=== PATIENT | female | born 1960 | race Caucasian/White ===

== ENCOUNTER 2017-08-17 09:12 | Inpatient (IN) | payer SELFPAY ==
[~2017-08-17] VITALS: Ht 165.1 cm; Wt 104.0 kg
[2017-08-17] VITALS (11 sets, daily range): BP systolic 147–184; BP diastolic 80–104; PULSE 110–120; RESP 20–26; TEMP 97–98.8; O2SAT 84–97
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
[2017-08-17] MEDS ORDERED: SODIUM CHLORIDE 0.9% FLUSH 10 ML FLUSH IVF PRN (09:30)
[2017-08-17] MEDS ORDERED: methylPREDNISolone SOD SUCC 125 MG/2 ML VIAL IV PUSH ONE (09:30)
[2017-08-17 09:43] LABS: AUTOMATED NEUTROPHIL # 8.1 TH/MM3 (1.8-7.7); BASOPHIL # 0.1 TH/MM3 (0-0.2); BASOPHIL % 0.5 % (0.0-2.0); EOSINOPHIL # 0.2 TH/MM3 (0-0.4); EOSINOPHIL % 1.7 % (0.0-4.0); HEMATOCRIT 43.5 % (35.0-46.0); HEMO FLAGS DIFF FINAL; LYMPH % 14.7 % (9.0-44.0); LYMPHOCYTE # 1.6 TH/MM3 (1.0-4.8); MEAN CELL VOLUME 83.8 FL (80.0-100.0); MEAN CORPUSCULAR HEMOGLOBIN 28.1 PG (27.0-34.0); MEAN CORPUSCULAR HGB CONC 33.5 % (32.0-36.0); MONO % 7.5 % (0.0-8.0); NEUT % 75.6 % (16.0-70.0); PLATELET COUNT 324 TH/MM3 (150-450); RED BLOOD COUNT 5.19 MIL/MM3 (4.00-5.30); RED CELL DISTRIBUTION WIDTH 13.6 % (11.6-17.2); WHITE BLOOD COUNT 10.8 TH/MM3 (4.0-11.0)
[2017-08-17] MEDS: RESP: ALBUTEROL 2.5 MG/IPRATROPIUM 0.5 MG NEB (SCH) INH (09:43)
[2017-08-17 09:55] LABS: BLOOD GAS BASE EXCESS 6.8 mmol/L (-2-2); BLOOD GAS CARBOXYHEMOGLOBIN 6.4 % (0-4); BLOOD GAS HCO3 32 mmol/L (22-26); BLOOD GAS METHEMOGLOBIN 1.1 % (0-2); BLOOD GAS OXYGEN CONTENT 16.2 Vol % (12.0-20.0); BLOOD GAS PCO2 53 mmHG (38-42); BLOOD GAS PO2 50 mmHG (61-120); BLOOD GAS TOTAL HGB 14.4 G/DL (12.0-16.0); CRITICAL VALUE YES; TEMP CORR TO 98.6
[2017-08-17 09:56] LABS: BICARBONATE 31.4 MEQ/L (21.0-32.0)
[2017-08-17 09:56] LABS: BLOOD GAS O2 HGB SATURATION 80 % (90-100); DRAW SITE RT RADIAL; NUMBER OF ARTERIAL PUNCTURES 1; OXYGEN DEVICE ROOM AIR; STAT YES; ULNAR PULSE PRESENT
--- NOTE | 2017-08-17 09:57 | RADRPT ---
EXAM DATE/TIME: 08/17/2017 09:35 [facility] COMPARISON: No previous studies available for comparison. INDICATIONS : Short of breath. MEDICAL HISTORY : Chronic obstructive pulmonary disease. SURGICAL HISTORY : None. ENCOUNTER: Initial ACUITY: 1 week PAIN SCORE: 0/10 LOCATION: Bilateral chest FINDINGS: A single view of the chest demonstrates the lungs to be symmetrically aerated without evidence of mas s, infiltrate or effusion. The cardiomediastinal contours are unremarkable. Osseous structures are intact. CONCLUSION: No acute disease. Jas Paiz MD FACR on August 17, 2017 at 9:44 Board Certified Radiologist. This report was verified electronically.
[2017-08-17 10:00] LABS: GLOMERULAR FILTRATION RATE 98 ML/MIN (>89)
[2017-08-17 10:02] LABS: ANION GAP 8 MEQ/L (5-15); CHLORIDE 99 MEQ/L (98-107); POTASSIUM 3.8 MEQ/L (3.5-5.1); SODIUM (NA) 138 MEQ/L (136-145)
[2017-08-17 10:07] LABS: BLOOD UREA NITROGEN 8 MG/DL (7-18)
[2017-08-17] MEDS ORDERED: RESP: ALBUTEROL 2.5 MG/3 ML NEB (SCH) NEB ONE (10:45)
[2017-08-17] MEDS ORDERED: SODIUM CHLORIDE 0.9% FLUSH 10 ML FLUSH IV FLUSH PRN (11:00)
[2017-08-17] MEDS: RESP: ALBUTEROL 2.5 MG/IPRATROPIUM 0.5 MG NEB (SCH) NEB ×4 (11:26→23:25)
--- NOTE | 2017-08-17 11:52 | EKG ---
Date Performed: 08/17/2017 Time Performed: 09:29:32 PTAGE: 56 years EKG: SINUS TACHYCARDIA INFERIOR MYOCARDIAL INFARCTION ABNORMAL ECG NO PREVIOUS TRACING DOCTOR: Dewyane Li Interpretating Date/Time 08/17/2017 11:51:19
[2017-08-17] MEDS ORDERED: IOHEXOL 350 MG/ML 10 ML VIAL (for RAD DIAG) IVCONTRAST ONE (13:52)
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
[2017-08-17] MEDS ORDERED: GLUCAGON 1 MG/ML VIAL OTHER PRN (14:15)
[2017-08-17] MEDS ORDERED: DOCUSATE SODIUM 100 MG CAP PO PRN (14:15)
[2017-08-17] MEDS ORDERED: ONDANSETRON HCL 4 MG/2 ML VIAL IV PRN (14:15)
[2017-08-17] MEDS ORDERED: MAGNESIUM HYDROXIDE SUSP 30 ML CUP PO PRN (14:15)
[2017-08-17] MEDS ORDERED: CALCIUM CARBONATE 500 MG CHEWABLE TAB CHEW PRN (14:15)
[2017-08-17] MEDS ORDERED: ACETAMINOPHEN 325 MG TAB PO PRN (14:15)
[2017-08-17] MEDS ORDERED: DEXTROSE 50% IN WATER 50 ML VIAL(D50) IV PRN (14:15)
[2017-08-17] MEDS: LISINOPRIL 5 MG TAB PO SCH (16:13)
[2017-08-17 17:10] LABS: HEMOGLOBIN A1a 1.4 %; HEMOGLOBIN A1b 2.2 %; HEMOGLOBIN Ao 82.2 %; HEMOGLOBIN LA1C 2.7 %; HEMOGLOBIN P3 4.1 %
[2017-08-17] MEDS: INSULIN ASPART SUPPLEMENTAL SCALE SQ SCH ×2 (18:27→20:55)
[2017-08-17] MEDS: methylPREDNISolone SOD SUCC 125 MG/2 ML VIAL IV PUSH SCH (18:28)
[2017-08-17] MEDS: SODIUM CHLORIDE 0.9% FLUSH 10 ML FLUSH IV FLUSH SCH (20:54)
[2017-08-18] VITALS (10 sets, daily range): BP systolic 123–134; BP diastolic 64–84; PULSE 103–117; RESP 14–20; TEMP 96.7–97.6; O2SAT 90–92
[2017-08-18] MEDS: methylPREDNISolone SOD SUCC 125 MG/2 ML VIAL IV PUSH SCH ×3 (02:00→17:56)
[2017-08-18] MEDS: RESP: ALBUTEROL 2.5 MG/IPRATROPIUM 0.5 MG NEB (SCH) NEB ×5 (03:20→20:14)
[2017-08-18] MEDS: SODIUM CHLORIDE 0.9% FLUSH 10 ML FLUSH IV FLUSH SCH ×2 (08:23→20:55)
[2017-08-18] MEDS: LISINOPRIL 5 MG TAB PO SCH (08:24)
[2017-08-18] MEDS: INSULIN ASPART SUPPLEMENTAL SCALE SQ SCH ×4 (09:48→20:55)
[2017-08-18] MEDS ORDERED: INFLUENZA VIRUS VACCINE (QUADRIVALENT) 0.5 ML SYR IM ONE (10:00)
[2017-08-18] MEDS ORDERED: RESP: ALBUTEROL 2.5 MG/3 ML NEB (PRN) NEB (11:15)
[2017-08-18] MEDS ORDERED: SODIUM CHLOR 0.9% 1000 ML INJ 1,000 ML IV ONE (11:15)
--- NOTE | 2017-08-18 11:45 | HHI.PR ---
Subjective Remarks Patient herself says she feels just slightly better since yesterday, but still is complaining of significant shortness of breath just ambulating back and forth from the bathroom. Again she denies any chest pain. , Says she does not feel rested. Nursing reports that she is very drowsy appearing. Tolerating by mouth intake well, afebrile Objective Vital Signs Date Time Temp Pulse Resp B/P (MAP) Pulse Ox O2 Delivery O2 Flow Rate FiO2 08/18/17 08:24 97.6 117 14 130/84 (99) 90 08/18/17 07:39 90 Nasal Cannula 3.00 08/18/17 04:00 97.3 113 20 134/79 (97) 90 08/18/17 00:00 97.1 111 20 130/81 (97) 92 08/17/17 20:06 91 Nasal Cannula 3.00 08/17/17 20:00 97.0 115 20 184/96 (125) 90 08/17/17 20:00 110 08/17/17 19:00 91 Nasal Cannula 3.00 08/17/17 18:51 92 Nasal Cannula 3.00 08/17/17 18:44 113 08/17/17 16:00 97.9 113 22 167/104 (125) 92 08/17/17 13:11 08/17/17 12:42 112 22 158/81 (106) 90 Nasal Cannula 3.00 08/17/17 11:42 120 22 147/80 (102) 90 Nasal Cannula 2.00 Result Diagram: 08/17/1735 08/17/1735 Imaging Last Impressions Chest X-Ray 08/17/17922 Signed Impressions: Service Date/Time: Thursday, August 17, 2017 09:35 - CONCLUSION: No acute disease. Jas Paiz MD FACR Objective Remarks Sleeping with her mouth open upon entrance Easily awoken Minimally labored breathing, diffuse mild to moderate expiratory wheezing Appears diaphoretic A/P Assessment and Plan 56-year-old female who presented to hospital because of progressive shortness of breath, dyspnea. Patient has not use any medications, oxygen, CPAP in over a year because of no primary medical doctor in this area. Acute on chronic hypoxic respiratory failure secondary to chronic obstructive pulmonary disease with acute exacerbation and medication noncompliance. Given just partial improvement since yesterday and persistent tachycardia with unknown level of what her baseline oxygen is supposed to be, we'll order CT pulmonary angiogram. Continue O2 supplementation maintain O2 sats greater than 92% We'll continue high-dose Solu-Medrol 125 for now Continue duo nebs. I do not feel that she has any acute coronary syndrome since she denies any and all chest pain or nausea and her initial troponin is negative. Tachycardia - new problem since this is persistent was originally thought to be due to neb tx's - I independently reviewed the EKG and it shows sinus tachycardia with no significant ST changes, we'll order repeat EKG today, we'll workup for pulmonary embolism as above . Hypertension, blood pressure elevated this time Could be secondary to acute distress, Solu-Medrol lisinopril 5 mg daily Vasotec/clonidine as needed History of diabetes, hyperglycemia Anticipate glucose getting worse secondary to steroid use Check hemoglobin A1c Accu-Cheks with sliding scale insulin DVT prevention will start Lovenox Discharge disposition Consult case management for discharge planning, patient will require patient care assistance, blue card, follow up with Dr. Smith/[facility] upon discharge Waldo Quinones MD Aug 18, 2017 11:45
[2017-08-18] MEDS ORDERED: RESP: ALBUTEROL 2.5 MG/IPRATROPIUM 0.5 MG NEB (SCH) NEB (12:00)
[2017-08-18] MEDS: ENOXAPARIN SODIUM 40 MG/0.4 ML SYRINGE SQ SCH (13:21)
[2017-08-18] MEDS: BUDESONIDE-FORMOTEROL 160/4.5 MCG INHALER INH SCH ×2 (13:21→20:55)
[2017-08-18] MEDS ORDERED: IOHEXOL 350 MG/ML 10 ML VIAL (for RAD DIAG) IVCONTRAST ONE (13:52)
--- NOTE | 2017-08-18 14:20 | RADRPT ---
EXAM DATE/TIME: 08/18/2017 13:45 [facility] COMPARISON: No previous studies available for comparison. INDICATIONS : Short of breath. Evaluate for embolism. IV CONTRAST: 65 cc Omnipaque 350 (iohexol) IV RADIATION DOSE: 21.62 CTDIvol (mGy) MEDICAL HISTORY : Hypertension. Chronic obstructive pulmonary disease. Asthma. Diabetes. SURGICAL HISTORY : Fusion, lumbar. ENCOUNTER: Initial ACUITY: 4 - 6 days PAIN SCALE: 0/10 LOCATION: chest TECHNIQUE: Volumetric scanning of the chest was performed using a pulmonary embolism protocol MIP images were re constructed. Using automated exposure control and adjustment of the mA and/or kV according to patien t size, radiation dose was kept as low as reasonably achievable to obtain optimal diagnostic quality images. DICOM format image data is available electronically for review and comparison. Follow-up recommendations for detected pulmonary nodules are based at a minimum on nodule size and pa tient risk factors according to Fleischner Society Guidelines. FINDINGS: PULMONARY ARTERIES: No filling defects are seen in the pulmonary arteries through the segmental level. LUNGS: There are faint scattered "tree in bud" densities in both hemithoraces peripherally characteristic of an atypical infection such as JAGDISH. Nonspecific perifissural nodule is seen a basilar segment of the right upper lobe which is probably postinflammatory. PLEURAE: There is no pleural thickening or pleural effusion. MEDIASTINUM: There is good visualization of the great vessels of the middle mediastinum. No evidence of mediastin al or hilar adenopathy/mass. MUSCULOSKELETAL: Within normal limits for patient age. MISCELLANEOUS: The visualized upper abdominal organs demonstrate no acute abnormality. CONCLUSION: 1. Faint, scattered "tree in bud" densities in both hemithoraces characteristic of an atypical infilt rate such as JAGDISH. 2. Isolated perifissural nodule in a basilar segment of the right upper lobe is nonspecific but likel y postinflammatory. 3. No confluent infiltrate or pulmonary embolus Harshal Oro MD on August 18, 2017 at 13:57 Board Certified Radiologist. This report was verified electronically.
[2017-08-18] MEDS ORDERED: DILTIAZEM HCL 30 MG TAB PO SCH (16:00)
[2017-08-18] MEDS ORDERED: AZITHROMYCIN 250 MG TAB PO ONE (16:30)
[2017-08-18] MEDS ORDERED: DILTIAZEM HCL 25 MG/5 ML VIAL IV ONE (18:00)
[2017-08-19] VITALS (9 sets, daily range): BP systolic 90–136; BP diastolic 57–77; PULSE 75–115; RESP 15–22; TEMP 96.5–98.1; O2SAT 92–95
[2017-08-19] MEDS: RESP: ALBUTEROL 2.5 MG/IPRATROPIUM 0.5 MG NEB (SCH) NEB ×7 (00:17→23:33)
[2017-08-19] MEDS: methylPREDNISolone SOD SUCC 125 MG/2 ML VIAL IV PUSH SCH ×3 (02:07→17:28)
[2017-08-19] MEDS: INSULIN ASPART SUPPLEMENTAL SCALE SQ SCH ×4 (09:23→21:26)
[2017-08-19] MEDS: SODIUM CHLORIDE 0.9% FLUSH 10 ML FLUSH IV FLUSH SCH ×2 (09:23→21:25)
[2017-08-19] MEDS: DILTIAZEM HCL 30 MG TAB PO SCH ×2 (09:24→13:47)
[2017-08-19] MEDS: BUDESONIDE-FORMOTEROL 160/4.5 MCG INHALER INH SCH (09:24)
[2017-08-19] MEDS: AZITHROMYCIN 250 MG TAB PO SCH (09:24)
[2017-08-19] MEDS: LISINOPRIL 5 MG TAB PO SCH (09:24)
--- NOTE | 2017-08-19 12:40 | HHI.PR ---
Subjective Remarks Patient herself says that she still feels short of breath, slightly better since yesterday. Reports mainly having dyspnea on exertion, even going to the bathroom. Patient is still having persistent tachycardia which responded to diltiazem. Case discussed with PT and nursing, reported that the patient did have 92% sats initially but then upon evaluation session was noted to be saturating at 87% while resting in no severe acute distress, then desaturated further to 81% upon exertion - the entire time being on 3 L. Patient herself says that at baseline when she used to have oxygen she thinks it was at least 2 L. Patient does admit to being anxious, says she is to be on Celexa, would like to have that restarted Objective Vital Signs Date Time Temp Pulse Resp B/P (MAP) Pulse Ox O2 Delivery O2 Flow Rate FiO2 08/19/17 08:50 97.7 98 15 112/73 (86) 92 08/19/17 07:16 93 Nasal Cannula 3.00 08/19/17 04:00 96.5 97 18 121/77 (92) 92 08/19/17 00:00 97.4 100 18 121/74 (90) 93 08/18/17 20:15 92 Nasal Cannula 3.00 08/18/17 20:00 103 08/18/17 20:00 96.7 112 18 126/79 (95) 92 08/18/17 20:00 92 Nasal Cannula 3.00 08/18/17 19:49 97.0 110 20 131/77 (95) 92 08/18/17 16:19 113 08/18/17 15:40 90 Nasal Cannula 2.00 08/18/17 15:20 91 Nasal Cannula 3.00 08/18/17 15:06 96.9 117 16 123/64 (83) 90 I/O 08/18/17 08/18/17 08/18/17 08/19/17 08/19/17 08/19/17 07:00 15:00 23:00 07:00 15:00 23:00 Intake Total 1100 ml 240 ml Balance 1100 ml 240 ml Intake Oral 1100 ml 240 ml # Voids 3 3 2 # Bowel Movements 1 Result Diagram: 08/17/1735 08/17/[address] Angiography 08/18/17 0000 Signed Impressions: Service Date/Time: Friday, August 18, 2017 13:45 - CONCLUSION: 1. Faint, scattered tree in bud densities in both hemithoraces characteristic of an atypical infiltrate such as JAGDISH. 2. Isolated perifissural nodule in a basilar segment of the right upper lobe is nonspecific but likely postinflammatory. 3. No confluent infiltrate or pulmonary embolus Harshal Oro MD Chest X-Ray 08/17/17 0923 Signed Impressions: Service Date/Time: Thursday, August 17, 2017 09:35 - CONCLUSION: No acute disease. Jas Paiz MD FACR Objective Remarks Awake, lying in bed No acute distress, on nasal cannula Coarse bilateral breath sounds with mild to moderate expiratory wheezing, breath sounds are deeper today Heart rate is regular rate and rhythm, no murmurs, no lower extremity edema A/P Assessment and Plan 56-year-old female who presented to hospital because of progressive shortness of breath, dyspnea. Patient has not use any medications, oxygen, CPAP in over a year because of no primary medical doctor in this area. Acute on chronic hypoxic respiratory failure secondary to chronic obstructive pulmonary disease with acute exacerbation and medication noncompliance. - CT angiogram is negative for pulmonary embolism, report itself reads findings characteristic of atypical JAGDISH, however my independent review of the film shows no abnormal infiltrates or effusions. Given her persistent desaturations and fluctuations on the same oxygen level of 3 L while having already undergone a full 48 hours of high-dose Solu-Medrol at 125 mg every 8 hours, will consult pulmonology. COPD - Continue to DuoNeb nebs and steroids Tachycardia - initially the problem was thought to be due to beta agonist nebulizer treatments and/or increased cardiac demand due to patient's sheer morbidly obese habitus, responded to Cardizem by feel that this is now actually a compensation for her hypoxia, will DC continue Cardizem for now until pulmonology evaluation.. Hypertension, blood pressure elevated this time Could be secondary to acute distress, Solu-Medrol lisinopril 5 mg daily Vasotec/clonidine as needed History of diabetes, hyperglycemia Anticipate glucose getting worse secondary to steroid use Check hemoglobin A1c Accu-Cheks with sliding scale insulin DVT prevention Lovenox Discharge disposition Consult case management for discharge planning, patient will require patient care assistance, blue card, follow up with Dr. Smith[facility] upon discharge Waldo Quinones MD Aug 19, 2017 12:40
[2017-08-19] MEDS: ENOXAPARIN SODIUM 40 MG/0.4 ML SYRINGE SQ SCH (13:48)
[2017-08-19] MEDS: cefTRIAXone INJ 1,000 MG in SODIUM CHLORIDE 0.9% INJ 100 ML IV SCH (17:28)
[2017-08-19] MEDS: PANTOPRAZOLE SOD 20 MG DELAYED RELEASE TAB PO SCH (17:28)
[2017-08-19] MEDS: CITALOPRAM HYDROBROMIDE 20 MG TAB PO SCH (17:28)
--- NOTE | 2017-08-19 21:00 | EKG ---
Date Performed: 08/18/2017 Time Performed: 14:55:00 PTAGE: 56 years EKG: SINUS TACHYCARDIA BORDERLINE LEFT AXIS DEVIATION ABNORMAL RHYTHM ECG PREVIOUS TRACING : 08/17/2017 09.29 Compared to prior tracing no significant change DOCTOR: Chirag Segura Interpretating Date/Time 08/19/2017 20:51:53
[2017-08-20] VITALS (8 sets, daily range): BP systolic 126–155; BP diastolic 71–92; PULSE 66–103; RESP 16–20; TEMP 97.3–98.2; O2SAT 93–98
[2017-08-20] MEDS: methylPREDNISolone SOD SUCC 125 MG/2 ML VIAL IV PUSH SCH ×3 (01:14→17:49)
[2017-08-20] MEDS: RESP: ALBUTEROL 2.5 MG/IPRATROPIUM 0.5 MG NEB (SCH) NEB ×6 (03:03→23:24)
[2017-08-20] MEDS: INSULIN ASPART SUPPLEMENTAL SCALE SQ SCH ×4 (08:00→21:40)
[2017-08-20] MEDS: INSULIN DETEMIR 100 UNITS/ML VIAL SQ SCH ×2 (09:00→21:40)
[2017-08-20] MEDS: LISINOPRIL 5 MG TAB PO SCH (09:57)
[2017-08-20] MEDS: CITALOPRAM HYDROBROMIDE 20 MG TAB PO SCH (09:58)
[2017-08-20] MEDS: SODIUM CHLORIDE 0.9% FLUSH 10 ML FLUSH IV FLUSH SCH ×2 (09:58→21:39)
[2017-08-20] MEDS: AZITHROMYCIN 250 MG TAB PO SCH (09:58)
[2017-08-20] MEDS: PANTOPRAZOLE SOD 20 MG DELAYED RELEASE TAB PO SCH (09:58)
--- NOTE | 2017-08-20 11:05 | HHI.PR ---
Subjective Remarks Patient states that she feels improved, breathing is easier. She does have a cough productive of clear sputum and the cough is keeping her up at night. Heart rate is within normal limits this morning. Objective Vitals Vital Signs Date Time Temp Pulse Resp B/P (MAP) Pulse Ox O2 Delivery O2 Flow Rate FiO2 08/20/17 08:00 97.6 66 17 129/71 (90) 95 08/20/17 07:55 96 Nasal Cannula 3.00 08/20/17 04:00 97.3 96 20 137/78 (97) 95 08/20/17 00:00 97.8 98 20 140/84 (102) 94 08/19/17 20:00 75 08/19/17 20:00 97.6 106 20 136/64 (88) 95 08/19/17 20:00 Nasal Cannula 3.00 08/19/17 19:08 93 Nasal Cannula 3.00 08/19/17 16:55 98.1 103 22 120/67 (84) 92 08/19/17 13:41 97.2 115 20 90/57 (68) 95 I/O 08/19/17 08/19/17 08/19/17 08/20/17 08/20/17 08/20/17 07:00 15:00 23:00 07:00 15:00 23:00 Intake Total 240 ml 480 ml Balance 240 ml 480 ml Intake Oral 240 ml 480 ml # Voids 2 3 # Bowel Movements 1 Result Diagram: 08/17/1735 08/17/17 0935 Objective Remarks GENERAL: Well-nourished, well-developed pleasant middle-aged female patient in no apparent distress. SKIN: Warm and dry. HEAD: Normocephalic. EYES: No scleral icterus. No injection or drainage. NECK: Supple, trachea midline. No JVD or lymphadenopathy. CARDIOVASCULAR: Regular rate and rhythm without murmurs, gallops, or rubs. RESPIRATORY: Breath sounds equal bilaterally. No accessory muscle use. Coarse breath sounds however no wheezing. GASTROINTESTINAL: Abdomen soft, non-tender, nondistended. EXTREMITIES: No cyanosis, or edema. NEUROLOGICAL: Awake, alert, and oriented x 3. Non-focal. A/P Problem List: (1) Acute and chronic respiratory failure with hypoxia ICD Code: J96.21 - Acute and chronic respiratory failure with hypoxia (2) Chronic obstructive pulmonary disease with acute exacerbation ICD Code: J44.1 - Chronic obstructive pulmonary disease with (acute) exacerbation (3) Hypertension ICD Code: I10 - Essential (primary) hypertension (4) Hyperglycemia ICD Code: R73.9 - Hyperglycemia, unspecified Assessment and Plan -COPD exacerbation with acute hypoxemic respiratory failure - improving, continue Solu-Medrol, Rocephin, Zithromax, DuoNeb's, oxygen via nasal cannula. Appreciate pulmonology consult. Follow-up sputum cultures. -Type 2 diabetes with hyperglycemia due to steroids. Start Levemir 5 units subcutaneous twice a day. -Hypertension, controlled - continue lisinopril -Depression - continue Celexa -DVT prophylaxis with Lovenox Mary Alice Joyce MD Aug 20, 2017 10:12
[2017-08-20] MEDS: ENOXAPARIN SODIUM 40 MG/0.4 ML SYRINGE SQ SCH (12:14)
--- NOTE | 2017-08-20 17:13 | MB ---
cc: Corinna GEORGES M.D. DATE OF CONSULTATION: 08/20/2017 REASON FOR CONSULTATION: Miss Houston is a 56-year-old white female who presents with increasing shortness of breath and a prior history of COPD. She has lived in this area for about a year but has had no insurance and has sought no medical care. When she lived in [facility] prior to this she had been known to have COPD, asthma, obstructive sleep apnea, hypertension and diabetes and was on medication including oxygen before moving up here. But after the move she ran out of all of her medications and again has not sought medical care until she came here with increasing shortness of breath. She is a smoker his smoked all of her adult life continues to smoke about a pack of cigarettes a day. She is feeling better now on bronchodilators, oxygen and corticosteroids. She has had no purulent sputum or hemoptysis. She has had no swelling in her legs. She had not been having orthopnea or PND until her breathing became more difficult within the last week or so. She had a CT angiogram on presentation with no evidence of thromboembolic disease but she does have some tree and bud densities possibly indicative of an atypical mycobacterial infection. No obvious pneumonia or edema. She has one small nodule that is nonspecific. PAST MEDICAL HISTORY: Hypertension Diabetes Tonsillectomy Previous lumbar spine surgery back in the s. ALLERGIES None known. MEDICATIONS Reviewed in the EMR. SOCIAL HISTORY She is single. She lives with a friend. She continues to smoke but does not drink alcohol or use illicit drugs. She is working. PHYSICAL EXAMINATION VITAL SIGNS: 98 degrees, 160/90, O2 flow rate at three with pulse oximetry of 96, respirations 18-22. HEAD, EYES, EARS, NOSE, AND THROAT: Sclerae anicteric. Mucous membranes are moist. LYMPHATICS: There is no adenopathy in the neck or supraclavicular region. LUNGS: She has diffuse wheezing throughout both lungs with some scattered congestion. HEART: No audible S3. No harsh murmur. Regular rhythm. ABDOMEN: The abdomen is obese but soft. No pitting edema or calf tenderness and no cyanosis. LABORATORY FINDINGS: White count is 10,000, hemoglobin is 14. Electrolytes were normal. Blood sugars 182. Arterial blood gases on room air her pO2 was 50 with a pH 7.4, pCO2 of 53. Spirometry was attempted earlier today she coughed and was unable to perform this study. DISCUSSION Miss Houston presents with increasing shortness of breath with what appears clinically to be acute exacerbation of underlying chronic obstructive pulmonary disease. Obviously this is chronic. She has known she had the disease previously, has not been able to take treatment recently because of lack of insurance but with a pCO2 of 50 compensated this is obviously a chronic affair. Will continue her bronchodilator therapy. Try to cut back a bit on the beta agonist because she has been tachycardiac, continue her corticosteroids and when she is feeling better attempt spirometry again to see if we can get baseline, adequate lung function. I have also explained to Mrs. Houston that despite her situation with insurance hopefully we can get case management involved so she could have appropriate follow up and use her medications, or this will only be a short-term relief of the problem. Further diagnostic and/or therapeutic intervention will depend on her ongoing clinical course. R. MD ÁNGEL Dunne/bari /4:14 PM /4:50 PM
[2017-08-20] MEDS: cefTRIAXone INJ 1,000 MG in SODIUM CHLORIDE 0.9% INJ 100 ML IV SCH (17:49)
[2017-08-20] MEDS: TEMAZEPAM 15 MG CAP PO PRN (23:24)
[2017-08-21] VITALS (8 sets, daily range): BP systolic 115–166; BP diastolic 73–96; PULSE 78–98; RESP 20–24; TEMP 95.7–98.5; O2SAT 93–98
[2017-08-21] MEDS: methylPREDNISolone SOD SUCC 125 MG/2 ML VIAL IV PUSH SCH ×3 (02:37→17:14)
[2017-08-21] MEDS: RESP: ALBUTEROL 2.5 MG/IPRATROPIUM 0.5 MG NEB (SCH) NEB ×6 (03:05→23:46)
[2017-08-21] MEDS: INSULIN ASPART SUPPLEMENTAL SCALE SQ SCH ×4 (08:00→21:05)
[2017-08-21] MEDS: INSULIN DETEMIR 100 UNITS/ML VIAL SQ SCH ×2 (09:00→21:05)
--- NOTE | 2017-08-21 09:45 | HHI.PR ---
Subjective Remarks Patient complains of headache this morning. She states cough is improving and shortness of breath improving. She still gets winded with exertion. Objective Vitals Vital Signs Date Time Temp Pulse Resp B/P (MAP) Pulse Ox O2 Delivery O2 Flow Rate FiO2 08/21/17 08:00 95.7 94 20 154/95 (114) 94 08/21/17 07:38 94 Nasal Cannula 2.00 08/21/17 04:00 97.7 91 20 155/92 (113) 96 08/21/17 00:00 97.8 91 20 144/80 (101) 96 08/20/17 20:00 98.2 96 20 144/91 (108) 93 08/20/17 19:10 94 Nasal Cannula 2.00 08/20/17 16:00 97.6 98 16 126/73 (90) 98 08/20/17 14:21 Nasal Cannula 3.00 21 08/20/17 13:20 18 08/20/17 12:00 98.0 103 18 133/90 (104) 96 I/O 08/20/17 08/20/17 08/20/17 08/21/17 08/21/17 08/21/17 07:00 15:00 23:00 07:00 15:00 23:00 Intake Total 480 ml 250 ml 680 ml 480 ml Balance 480 ml 250 ml 680 ml 480 ml Intake Oral 480 ml 250 ml 580 ml 480 ml IV Total 100 ml # Voids 3 2 2 # Bowel Movements 1 1 0 Result Diagram: 08/17/17 0935 08/17/17 0935 Objective Remarks GENERAL: Well-nourished, well-developed pleasant middle-aged female patient in no apparent distress. SKIN: Warm and dry. HEAD: Normocephalic. EYES: No scleral icterus. No injection or drainage. NECK: Supple, trachea midline. No JVD or lymphadenopathy. CARDIOVASCULAR: Regular rate and rhythm without murmurs, gallops, or rubs. RESPIRATORY: Breath sounds equal bilaterally. No accessory muscle use. Coarse breath sounds however no wheezing. GASTROINTESTINAL: Abdomen soft, non-tender, nondistended. EXTREMITIES: No cyanosis, or edema. NEUROLOGICAL: Awake, alert, and oriented x 3. Non-focal. A/P Problem List: (1) Acute and chronic respiratory failure with hypoxia ICD Code: J96.21 - Acute and chronic respiratory failure with hypoxia (2) Chronic obstructive pulmonary disease with acute exacerbation ICD Code: J44.1 - Chronic obstructive pulmonary disease with (acute) exacerbation (3) Hypertension ICD Code: I10 - Essential (primary) hypertension (4) Hyperglycemia ICD Code: R73.9 - Hyperglycemia, unspecified Assessment and Plan -COPD exacerbation with acute hypoxemic respiratory failure - improving, continue Solu-Medrol but will stepdown the dose, Rocephin, Zithromax, DuoNeb's, oxygen via nasal cannula. Appreciate pulmonology consult. Follow-up sputum cultures. Suspect she will require home oxygen. -Type 2 diabetes with hyperglycemia due to steroids. Hemoglobin A1c 7.1. Continue Levemir 5 units subcutaneous twice a day. -Hypertension, controlled - continue lisinopril -Depression - continue Celexa -DVT prophylaxis with Lovenox Mary Alice Joyce MD Aug 21, 2017 09:45
[2017-08-21] MEDS: SODIUM CHLORIDE 0.9% FLUSH 10 ML FLUSH IV FLUSH SCH ×2 (10:14→20:41)
[2017-08-21] MEDS: ENOXAPARIN SODIUM 40 MG/0.4 ML SYRINGE SQ SCH (10:15)
[2017-08-21] MEDS: AZITHROMYCIN 250 MG TAB PO SCH (10:15)
[2017-08-21] MEDS: CITALOPRAM HYDROBROMIDE 20 MG TAB PO SCH (10:15)
[2017-08-21] MEDS: PANTOPRAZOLE SOD 20 MG DELAYED RELEASE TAB PO SCH (10:15)
[2017-08-21] MEDS: LISINOPRIL 5 MG TAB PO SCH (10:25)
[2017-08-21] MEDS: cefTRIAXone INJ 1,000 MG in SODIUM CHLORIDE 0.9% INJ 100 ML IV SCH (17:14)
[2017-08-21] MEDS: TEMAZEPAM 15 MG CAP PO PRN (20:41)
[2017-08-22] VITALS (8 sets, daily range): BP systolic 120–165; BP diastolic 62–96; PULSE 68–92; RESP 18–20; TEMP 97.4–98.1; O2SAT 94–96
[2017-08-22] MEDS: methylPREDNISolone SOD SUCC 125 MG/2 ML VIAL IV PUSH SCH ×3 (02:25→21:47)
[2017-08-22] MEDS: RESP: ALBUTEROL 2.5 MG/IPRATROPIUM 0.5 MG NEB (SCH) NEB ×5 (03:25→19:39)
[2017-08-22] MEDS: INSULIN ASPART SUPPLEMENTAL SCALE SQ SCH ×4 (08:00→21:45)
[2017-08-22] MEDS: INSULIN DETEMIR 100 UNITS/ML VIAL SQ SCH ×2 (09:00→21:45)
[2017-08-22] MEDS: PANTOPRAZOLE SOD 20 MG DELAYED RELEASE TAB PO SCH (10:31)
[2017-08-22] MEDS: CITALOPRAM HYDROBROMIDE 20 MG TAB PO SCH (10:31)
[2017-08-22] MEDS: LISINOPRIL 5 MG TAB PO SCH (10:31)
[2017-08-22] MEDS: AZITHROMYCIN 250 MG TAB PO SCH (10:32)
[2017-08-22] MEDS: SODIUM CHLORIDE 0.9% FLUSH 10 ML FLUSH IV FLUSH SCH ×2 (10:32→21:47)
[2017-08-22] MEDS: ENOXAPARIN SODIUM 40 MG/0.4 ML SYRINGE SQ SCH (12:00)
--- NOTE | 2017-08-22 13:24 | HHI.PR ---
Subjective Remarks Patient complains of migraine for several days. Still has cough productive of green sputum however less wheezing and exertional dyspnea has improved. Objective Vitals Vital Signs Date Time Temp Pulse Resp B/P (MAP) Pulse Ox O2 Delivery O2 Flow Rate FiO2 08/22/17 12:00 98.0 92 20 125/62 (83) 95 08/22/17 11:16 Nasal Cannula 2.00 21 08/22/17 08:04 95 Nasal Cannula 2.00 08/22/17 08:00 97.7 80 20 139/80 (99) 94 08/22/17 04:00 98.1 68 20 140/86 (104) 96 08/22/17 00:00 97.6 90 20 154/92 (112) 95 08/21/17 20:00 98.3 98 24 166/96 (119) 93 08/21/17 19:16 95 Nasal Cannula 2.00 08/21/17 16:00 98.5 78 20 115/73 (87) 98 I/O 08/21/17 08/21/17 08/21/17 08/22/17 08/22/17 08/22/17 07:00 15:00 23:00 07:00 15:00 23:00 Intake Total 480 ml 480 ml 720 ml 500 ml Balance 480 ml 480 ml 720 ml 500 ml Intake Oral 480 ml 480 ml 720 ml 500 ml # Voids 2 4 2 # Bowel Movements 0 0 0 Objective Remarks GENERAL: Well-nourished, well-developed pleasant middle-aged female patient in no apparent distress. SKIN: Warm and dry. HEAD: Normocephalic. EYES: No scleral icterus. No injection or drainage. NECK: Supple, trachea midline. No JVD or lymphadenopathy. CARDIOVASCULAR: Regular rate and rhythm without murmurs, gallops, or rubs. RESPIRATORY: Breath sounds equal bilaterally. No accessory muscle use. Coarse breath sounds however no wheezing. GASTROINTESTINAL: Abdomen soft, non-tender, nondistended. EXTREMITIES: No cyanosis, or edema. NEUROLOGICAL: Awake, alert, and oriented x 3. Non-focal. A/P Problem List: (1) Acute and chronic respiratory failure with hypoxia ICD Code: J96.21 - Acute and chronic respiratory failure with hypoxia (2) Chronic obstructive pulmonary disease with acute exacerbation ICD Code: J44.1 - Chronic obstructive pulmonary disease with (acute) exacerbation (3) Hypertension ICD Code: I10 - Essential (primary) hypertension (4) Hyperglycemia ICD Code: R73.9 - Hyperglycemia, unspecified Assessment and Plan -COPD exacerbation with acute hypoxemic respiratory failure - improving, continue Solu-Medrol but will stepdown the dose to 60 mg every 12 hours, Rocephin, Zithromax, DuoNeb's, oxygen via nasal cannula. Appreciate pulmonology consult. Suspect she will require home oxygen. -Type 2 diabetes with hyperglycemia due to steroids. Hemoglobin A1c 7.1. Continue Levemir 5 units subcutaneous twice a day. -Staph hemolyticus and 1 blood culture, likely contaminant. -Migraine. Add Fioricet. -Hypertension, controlled - continue lisinopril -Depression - continue Celexa -DVT prophylaxis with Lovenox Mary Alice Joyce MD Aug 22, 2017 13:24
[2017-08-22] MEDS ORDERED: ACETAMIN 325 MG/BUTALBITAL 50 MG/CAFFEINE 40 MG TAB PO PRN (13:30)
[2017-08-22] MEDS ORDERED: ACETAMIN 325 MG/BUTALBITAL 50 MG/CAFFEINE 40 MG TAB PO ONE (14:00)
[2017-08-23] VITALS (7 sets, daily range): BP systolic 135–160; BP diastolic 71–104; PULSE 80–98; RESP 16–18; TEMP 97.2–98.3; O2SAT 94–97
[2017-08-23] MEDS: RESP: ALBUTEROL 2.5 MG/IPRATROPIUM 0.5 MG NEB (SCH) NEB ×4 (07:25→20:56)
[2017-08-23] MEDS: INSULIN ASPART SUPPLEMENTAL SCALE SQ SCH ×4 (08:00→22:00)
[2017-08-23] MEDS: INSULIN DETEMIR 100 UNITS/ML VIAL SQ SCH ×2 (09:00→22:00)
[2017-08-23] MEDS: SODIUM CHLORIDE 0.9% FLUSH 10 ML FLUSH IV FLUSH SCH ×2 (09:44→22:01)
[2017-08-23] MEDS: methylPREDNISolone SOD SUCC 125 MG/2 ML VIAL IV PUSH SCH (09:45)
[2017-08-23] MEDS: CITALOPRAM HYDROBROMIDE 20 MG TAB PO SCH (09:48)
[2017-08-23] MEDS: LEVOFLOXACIN 500 MG TAB PO SCH (09:48)
[2017-08-23] MEDS: LISINOPRIL 5 MG TAB PO SCH (09:48)
[2017-08-23] MEDS: PANTOPRAZOLE SOD 20 MG DELAYED RELEASE TAB PO SCH (09:48)
--- NOTE | 2017-08-23 11:30 | HHI.PR ---
Subjective Remarks Patient states cough is improving, headache improved and better exercise tolerance with less exertional dyspnea. Objective Vitals Vital Signs Date Time Temp Pulse Resp B/P (MAP) Pulse Ox O2 Delivery O2 Flow Rate FiO2 08/23/17 07:25 96 Nasal Cannula 2.00 08/23/17 04:00 97.2 82 18 153/98 (116) 94 08/23/17 00:00 98.3 98 18 160/104 (122) 95 08/22/17 20:00 97.4 84 18 165/96 (119) 94 08/22/17 20:00 86 08/22/17 19:39 95 Nasal Cannula 2.00 08/22/17 19:00 94 Nasal Cannula 2.00 08/22/17 16:10 18 08/22/17 16:00 98.0 88 20 120/68 (85) 95 08/22/17 12:00 98.0 92 20 125/62 (83) 95 I/O 08/22/17 08/22/17 08/22/17 08/23/17 08/23/17 08/23/17 07:00 15:00 23:00 07:00 15:00 23:00 Intake Total 720 ml 500 ml 960 ml 480 ml Balance 720 ml 500 ml 960 ml 480 ml Intake Oral 720 ml 500 ml 960 ml 480 ml # Voids 2 3 2 # Bowel Movements 0 1 Objective Remarks GENERAL: Well-nourished, well-developed pleasant middle-aged female patient in no apparent distress. SKIN: Warm and dry. HEAD: Normocephalic. EYES: No scleral icterus. No injection or drainage. NECK: Supple, trachea midline. No JVD or lymphadenopathy. CARDIOVASCULAR: Regular rate and rhythm without murmurs, gallops, or rubs. RESPIRATORY: Breath sounds equal bilaterally. No accessory muscle use. Coarse breath sounds however no wheezing. GASTROINTESTINAL: Abdomen soft, non-tender, nondistended. EXTREMITIES: No cyanosis, or edema. NEUROLOGICAL: Awake, alert, and oriented x 3. Non-focal. A/P Problem List: (1) Acute and chronic respiratory failure with hypoxia ICD Code: J96.21 - Acute and chronic respiratory failure with hypoxia (2) Chronic obstructive pulmonary disease with acute exacerbation ICD Code: J44.1 - Chronic obstructive pulmonary disease with (acute) exacerbation (3) Hypertension ICD Code: I10 - Essential (primary) hypertension (4) Hyperglycemia ICD Code: R73.9 - Hyperglycemia, unspecified Assessment and Plan -COPD exacerbation with acute hypoxemic respiratory failure - improving, will change Solu-Medrol to prednisone, patient on Levaquin, DuoNeb's, oxygen via nasal cannula. Appreciate pulmonology consult. Suspect she will require home oxygen, will reorder oxygen walk test today. -Type 2 diabetes with hyperglycemia due to steroids. Hemoglobin A1c 7.1. Continue Levemir 5 units subcutaneous twice a day. -Staph hemolyticus and 1 blood culture, likely contaminant. -Migraine. Improved, continue Fioricet. -Hypertension, controlled - continue lisinopril -Depression - continue Celexa -DVT prophylaxis with Lovenox Discharge Planning Anticipate discharge home with home oxygen tomorrow Mary Alice Joyce MD Aug 23, 2017 11:30
[2017-08-23] MEDS: ENOXAPARIN SODIUM 40 MG/0.4 ML SYRINGE SQ SCH (14:03)
[2017-08-23] MEDS ORDERED: OXYGENDME NAS.CANULA (14:35)
[2017-08-23] MEDS: predniSONE 20 MG TAB PO SCH (21:59)
[2017-08-24] VITALS: BP 133/85; PULSE 80; RESP 20; TEMP 98; O2SAT 94
[2017-08-24 04:00] VITALS: BP 142/85; PULSE 71; RESP 16; TEMP 98.4; O2SAT 93
[2017-08-24] MEDS: RESP: ALBUTEROL 2.5 MG/IPRATROPIUM 0.5 MG NEB (SCH) NEB ×2 (07:08→11:11)
[2017-08-24 07:09] VITALS: O2SAT 94
[2017-08-24 08:00] VITALS: BP 123/76; PULSE 78; RESP 20; TEMP 96.8; O2SAT 95
[2017-08-24] MEDS: INSULIN ASPART SUPPLEMENTAL SCALE SQ SCH (08:00)
[2017-08-24 09:00] VITALS: PULSE 64
[2017-08-24] MEDS: INSULIN DETEMIR 100 UNITS/ML VIAL SQ SCH (09:00)
[2017-08-24] MEDS: CITALOPRAM HYDROBROMIDE 20 MG TAB PO SCH (09:22)
[2017-08-24] MEDS: predniSONE 20 MG TAB PO SCH (09:22)
[2017-08-24] MEDS: SODIUM CHLORIDE 0.9% FLUSH 10 ML FLUSH IV FLUSH SCH (09:22)
[2017-08-24] MEDS: PANTOPRAZOLE SOD 20 MG DELAYED RELEASE TAB PO SCH (09:22)
[2017-08-24] MEDS: LISINOPRIL 5 MG TAB PO SCH (09:22)
[2017-08-24] MEDS: LEVOFLOXACIN 500 MG TAB PO SCH (09:22)
[2017-08-24] MEDS ORDERED: MEDR4PAK PO (10:35)
[2017-08-24] MEDS ORDERED: METF500T PO (10:35)
[2017-08-24] MEDS ORDERED: SYMB160A INH (10:35)
[2017-08-24] MEDS ORDERED: VENTAER INH (10:35)
[2017-08-24] MEDS ORDERED: CELE20TA PO (10:35)
[2017-08-24] MEDS ORDERED: LISI-519 PO (10:35)
--- NOTE | 2017-08-24 11:50 | HHI.DS ---
Discharge Summary Admission Date Aug 20, 2017 at 08:43 Discharge Date: Aug 24, 2017 Admitting Diagnosis COPD exacerbation (1) Acute and chronic respiratory failure with hypoxia ICD Code: J96.21 - Acute and chronic respiratory failure with hypoxia Diagnosis: Principal (2) Chronic obstructive pulmonary disease with acute exacerbation ICD Code: J44.1 - Chronic obstructive pulmonary disease with (acute) exacerbation Diagnosis: Principal (3) Hypertension ICD Code: I10 - Essential (primary) hypertension Diagnosis: Principal (4) Hyperglycemia ICD Code: R73.9 - Hyperglycemia, unspecified Diagnosis: Principal Procedures None Brief History - From Admission 56-year-old female with known history of chronic respiratory failure, chronic obstructive pulmonary disease, asthma, obesity, obstructive sleep apnea, hypertension, diabetes who presented to hospital because of progressive shortness of breath, dyspnea. Patient states for unknown reason that she moved to this area one year ago from [place] with only the clothes on her back. She used to be on oxygen but ran out of her medications for the past year. She started developing shortness of breath and dyspnea. Her breathing progressively got worse where she could not even get up and walk. She has had a severe headache and because it did not get any better she came to the ER for evaluation. Patient had workup done emergency department found to have significant hypoxia despite use of Solu-Medrol, nebulizer treatments, oxygen. Because of patient's persistent hypoxia despite treatment in the ER is recommended the patient be observed in the hospital for further recommendations. Imaging Last Impressions CT Angiography 08/18/17 0000 Signed Impressions: Service Date/Time: Friday, August 18, 2017 13:45 - CONCLUSION: 1. Faint, scattered tree in bud densities in both hemithoraces characteristic of an atypical infiltrate such as JAGDISH. 2. Isolated perifissural nodule in a basilar segment of the right upper lobe is nonspecific but likely postinflammatory. 3. No confluent infiltrate or pulmonary embolus Harshal Oro MD Chest X-Ray 08/17/17 0923 Signed Impressions: Service Date/Time: Thursday, August 17, 2017 09:35 - CONCLUSION: No acute disease. Jas Paiz MD FACR PE at Discharge GENERAL: Well-nourished, well-developed pleasant middle-aged female patient in no apparent distress. SKIN: Warm and dry. HEAD: Normocephalic. EYES: No scleral icterus. No injection or drainage. NECK: Supple, trachea midline. No JVD or lymphadenopathy. CARDIOVASCULAR: Regular rate and rhythm without murmurs, gallops, or rubs. RESPIRATORY: Breath sounds equal bilaterally. No accessory muscle use. Coarse breath sounds however no wheezing. GASTROINTESTINAL: Abdomen soft, non-tender, nondistended. EXTREMITIES: No cyanosis, or edema. NEUROLOGICAL: Awake, alert, and oriented x 3. Non-focal. Hospital Course The patient was admitted and treated for COPD exacerbation with possible atypical pneumonia. Pulmonology was consulted. The patient remained hypoxemic initially however after several days of high-dose steroids and antibiotics her respiratory status improved. The patient no longer requires oxygen. The patient does not have insurance and so a blue card was arranged for her so she can [facility] the [facility]. The patient will be discharged home today. See below for prescriptions. Pt Condition on Discharge: Stable Discharge Disposition: Discharge Home Discharge Time: > 30 minutes Discharge Instructions DIET: Follow Instructions for: Diabetic Diet Activities you can perform: Regular-No Restrictions Follow up Referrals: PCP Follow-up - 1 Week New Medications: Albuterol 18 GM Inh (Ventolin Hfa 18 GM Inh) 90 Mcg/Act Aer 2 PUFF INH Q4H PRN for SHORTNESS OF BREATH, #1 INHALER 0 Refills Metformin (Metformin) 500 Mg Tab 500 MG PO DAILY for Blood Sugar Management, #30 TAB 0 Refills With a meal Methylprednisolone Dosepak (Medrol Dosepak) 4 Mg Dspk 4 MG PO DIRECTED, #1 DSPK 0 Refills Per Pharmacist direction Oxygen (O2) (Oxygen (O2)) Device LITER DONNY.CANULA CONTINUOUS for Prevent Hypoxemia, #2 Oxygen Concentrator Portable Gaseous 2 L/min via Nasal Canula Continuous For 99 months Budesonide-Formoterol Inh (Symbicort Inh) 160-4.5 Mcg/Act Aero 1 PUFF INH Q12HR for copd, #1 INHALER Citalopram (Celexa) 20 Mg Tab 20 MG PO DAILY for Depression Control, #30 TAB Lisinopril (Lisinopril) 5 Mg Tab 5 MG PO DAILY for Blood Pressure Management, #30 TAB Mary Alice Joyce MD Aug 24, 2017 11:50
--- NOTE | 2017-08-25 08:57 | RSPPFT ---
DATE OF PROCEDURE: 08/22/17 COMMENTS: VOLUMES DYNAMIC: FVC moderately reduced; FEV1 severely reduced. FLOWS: FEV1% moderately reduced; FEF 25-75 severely reduced. IMPRESSION: Moderately severe obstructive ventilatory defect with minimal change post-bronchodilator.
== END 2017-08-24 12:51 | disposition home or self-care (01) | DRG 190 ==
LOC: PHED 09:12 → PHEDA 10:49 → PH5A 13:16 → OBSVTOIN 08-20 08:43
PROVIDERS: ADMIT Family Medicine; ATTEND Family Medicine
DX: J44.1 Chronic obstructive pulmonary disease with (acute) exacerbation (principal); J96.21 Acute and chronic respiratory failure with hypoxia; I10 Essential (primary) hypertension; E11.65 Type 2 diabetes mellitus with hyperglycemia; G47.33 Obstructive sleep apnea (adult) (pediatric); E66.9 Obesity, unspecified; Z68.38 Body mass index [BMI] 38.0-38.9, adult; F17.210 Nicotine dependence, cigarettes, uncomplicated; Z91.14 Patient's other noncompliance with medication regimen; R00.0 Tachycardia, unspecified; F32.9 Major depressive disorder, single episode, unspecified; G43.909 Migraine, unspecified, not intractable, without status migrainosus
CPT/HCPCS: 36600; 71010; 71275; 80048; 82805; 82948; 83036; 83605; 83880; 84145; 84484; 85025; 86403; 87040; 87077; 87186; 87205; 87804; 90686; 93005; 94060; 94150; 94620; 94640; 94664; 96365; 96372; 96375; 96376; G0378; G8987-GP; G8988-GP; J0696; J1650; J1815; J2930; J7030; J7512; J7613; Q2038; Q9967

== ENCOUNTER 2018-10-20 20:20 | Observation (INO) ==
--- NOTE | 2018-10-20 22:42 | ED ---
HPI General Chief Complaint: Shortness of Breath/Dyspnea Stated Complaint: SOB/Cough x 2 days hx copd Time Seen by Provider: 10/20/18 22:27 History of Present Illness Patient is a 57-year-old female who has a history of COPD she has no inhaler she has no nebulizers she said for 5 days progressively getting worse shortness of breath now she cannot even walk from her house to her car without becoming completely out of breath. She said she had inhalers but "everyone still her medications so she does not have anything out of treated with. She is also diabetic but she is not on at high hyperglycemics she says she is diet controlled she is also questionable whether she is hypertensive but she is on nothing for that her BP at triage is 162 systolic. Patient in the ER is got a diffuse wheeze auscultated on all [place] on initial exam she is increased respiratory rate mild she has not seen another doctor for this. And she has not had any treatment for this because she is out of all of her medication she should have for her COPD history. She does not think she has an upper respiratory infection and does not have any other related symptoms or associated symptoms at this time Related Data Previous Rx's Medication Instructions Recorded albuterol sulfate 2 inh INHALATION Q4H PRN #8.5 g 10/21/18 ciprofloxacin HCl [Cipro] 500 mg PO BID #14 tab 10/21/18 prednisone 50 mg PO DAILY 5 Days #5 tab 10/21/18 Allergies Allergy/AdvReac Type Severity Reaction Status Date / Time No Known Allergies Allergy Unknown Verified 10/20/18 20:35 Review of Systems ROS: all other systems reviewed are negative [facility] Medical History Medical History History of COPD (Acute) Hx of diabetes mellitus (Acute) Obstructive sleep apnea (Acute) Surgical History Surgical History Previous back surgery (Acute) Family History Family History Other Heart disease Lung cancer Social History Social History Substance History: No History of Abuse Second Hand Smoke Exposure: Yes Smoking Status: Current every day smoker Tobacco Type: Cigarettes How Often Do You Have a Drink Containing Alcohol: Never Recent Travel in [place] within the Last 8 Weeks: No Recent Out of Country Travel within the Last 8 Weeks: No Immunization History Tetanus Immunization: Unsure Exam Narrative Exam Narrative: GENERAL: Patient is sitting up leaning forward to breathe slight respiratory distress SKIN: Warm and dry. HEAD: Atraumatic. Normocephalic. EYES: Pupils equal and round. No scleral icterus. No injection or drainage. ENT: No nasal bleeding or discharge. Mucous membranes pink and moist. NECK: Trachea midline. No JVD. CARDIOVASCULAR: Regular rate and rhythm. RESPIRATORY: No accessory muscle use. Diffuse wheeze in all [place] expiratory bilateral GASTROINTESTINAL: Abdomen soft, non-tender, nondistended. Hepatic and splenic margins not palpable. MUSCULOSKELETAL: Extremities without clubbing, cyanosis, or edema. No obvious deformities. NEUROLOGICAL: Awake and alert. No obvious cranial nerve deficits. Motor grossly within normal limits. Five out of 5 muscle strength in the arms and legs. Normal speech. PSYCHIATRIC: Appropriate mood and affect; insight and judgment normal. Course Initial Documented Vital Signs Temperature 99.2 F 10/20/18 20:36 Pulse Rate 114 H 10/20/18 20:36 Respiratory Rate 20 10/20/18 20:36 Blood Pressure 162/76 H 10/20/18 20:36 Pulse Oximetry 92 L 10/20/18 20:36 Last Documented Vital Signs Temperature 97.3 F L 10/21/18 15:15 Pulse Rate 126 H 10/21/18 16:42 Respiratory Rate 20 10/21/18 16:42 Blood Pressure 141/83 H 10/21/18 15:15 Pulse Oximetry 93 L 10/21/18 16:43 Medical Decision Making MDM Narrative Medical decision making narrative: Pt given nebs , levaquin , solumedrol and observation , while sleeping she is desaturating to 89 on RA will need re-treatment and re-eval, after 5 hrs trying to involve LUNG function with nebs and steroids and levaquin pt still desaturating to 84% on RA Medical Screen Exam Complete: Yes Emergency Medical Condition: Yes Differential Diagnosis Differential Diagnosis: diagnosis could be URI with COPD exacerbation ,, vs FLU vs PNA v s PTX vs other COPD exacerbation from viral illness allergic Lab Data Result diagrams: 10/20/18 23:00 10/20/18 23:00 Lab Results 10/20/18 10/20/18 10/20/18 Range/Units 23:00 23:00 23:00 CBC w Diff Auto diff final WBC 7.2 (4.0-11.0) th/mm3 RBC 5.20 (4.00-5.30) mil/mm3 Hgb 14.6 (11.6-15.3) gm/dL Hct 44.5 (35.0-46.0) % MCV 85.6 (80.0-100.0) fL MCH 28.1 (27.0-34.0) pg MCHC 32.8 (32.0-36.0) % RDW 13.2 (11.6-17.2) % Plt Count 243 (150-450) th/mm3 MPV 7.8 (7.0-11.0) fL Neut % (Auto) 63.3 (16.0-70.0) % Lymph % (Auto) 24.9 (9.0-44.0) % [place] % (Auto) 9.6 H (0.0-8.0) % Eos % (Auto) 1.6 (0.0-4.0) % Baso % (Auto) 0.6 (0.0-2.0) % Neut # (Auto) 4.6 (1.8-7.7) th/mm3 Lymph # (Auto) 1.8 (1.0-4.8) th/mm3 [place] # (Auto) 0.7 (0.0-0.9) th/mm3 Eos # (Auto) 0.1 (0.0-0.4) th/mm3 Baso # (Auto) 0.0 (0.0-0.2) th/mm3 WBC Differential . Differential Comment . Sodium 136 (136-145) meq/L Potassium 3.7 (3.5-5.1) meq/L Chloride 99 (98-107) meq/L Carbon Dioxide 30.6 (21.0-32.0) meq/L Anion Gap 6 (5-15) meq/L BUN 9 (7-18) mg/dL Creatinine 1.00 (0.50-1.00) mg/dL Estimated GFR 58 L (>89) mL/min Random Glucose 193 H (74-106) mg/dL Calcium 8.0 L (8.5-10.1) mg/dL Total Bilirubin 0.4 (0.2-1.0) mg/dL AST 12 L (15-37) U/L ALT 25 (10-53) U/L Alkaline Phosphatase 105 (45-117) U/L B-Natriuretic Peptide 7 (0-100) pg/mL Total Protein 6.9 (6.4-8.2) g/dL Albumin 3.2 L (3.4-5.0) g/dL Imaging Data Radiologist's impression: Chest X-Ray 10/20/18 22:31 CONCLUSION: No acute cardiopulmonary disease identified. Discharge Plan Discharge Disposition Patient Disposition: 30 Still Patient Physicians Team ED Provider: Mahad Solomon Primary Care Provider: Primary Care Meryl Boyd Attending Provider: Waldo Quinones Discharge Interventions Interventions: ED Discharge Assessment Last Done: 10/21/18 07:18 Status ED Status: Left Department Discharge Information Discharge Date/Time: 10/21/18 07:30
--- NOTE | 2018-10-20 23:09 | XR ---
EXAM DATE: 10/20/2018 11:04 PM EST AGE/SEX: 57 years / Female INDICATIONS: . Short of breath. CLINICAL DATA: This is the patient's initial encounter. Patient reports that signs and symptoms have been present for 4 - 6 days and indicates a pain score of 3/10. MEDICAL/SURGICAL HISTORY: Chronic obstructive pulmonary disease. None. COMPARISON: No prior exams available for comparison. FINDINGS: PA and lateral views of the chest. The lungs are clear. Cardiomediastinal silhouette with in normal limits. No evidence of pleural effusion or pneumothorax. CONCLUSION: No acute cardiopulmonary disease identified. Electronically signed by: Too Muhammad MD 10/20/2018 11:08 PM EST
[2018-10-20 23:17] LABS: Baso % (Auto) 0.6 % (0.0-2.0); Eos # (Auto) 0.1 th/mm3 (0.0-0.4); Eos % (Auto) 1.6 % (0.0-4.0); Hematocrit 44.5 % (35.0-46.0); Hemoglobin 14.6 gm/dL (11.6-15.3); Lymph # (Auto) 1.8 th/mm3 (1.0-4.8); Lymph % (Auto) 24.9 % (9.0-44.0); Mean Corpuscular HGB Conc 32.8 % (32.0-36.0); Mean Corpuscular Hemoglobin 28.1 pg (27.0-34.0); Mean Corpuscular Volume 85.6 fL (80.0-100.0); Mean Platelet Volume 7.8 fL (7.0-11.0); Mono # (Auto) 0.7 th/mm3 (0.0-0.9); Mono % (Auto) 9.6 % (0.0-8.0); Neut # (Auto) 4.6 th/mm3 (1.8-7.7); Neut % (Auto) 63.3 % (16.0-70.0); Platelet Count 243 th/mm3 (150-450); Red Cell Distribution Width 13.2 % (11.6-17.2); White Blood Count 7.2 th/mm3 (4.0-11.0)
[2018-10-20 23:29] LABS: Chloride 99 meq/L (98-107); Potassium 3.7 meq/L (3.5-5.1); Sodium 136 meq/L (136-145)
[2018-10-20 23:33] LABS: Albumin 3.2 g/dL (3.4-5.0); Anion Gap 6 meq/L (5-15); Blood Urea Nitrogen 9 mg/dL (7-18); Carbon Dioxide 30.6 meq/L (21.0-32.0); Glucose,Random 193 mg/dL (74-106)
[2018-10-20 23:36] LABS: Alanine Aminotransferase 25 U/L (10-53); Aspartate Aminotransferase 12 U/L (15-37); Glomerular Filtration Rate 58 mL/min (>89)
[2018-10-20 23:38] LABS: Total Protein 6.9 g/dL (6.4-8.2)
[2018-10-20 23:39] LABS: Alkaline Phosphatase 105 U/L (45-117)
[2018-10-20] MEDS ORDERED: MethylPREDNISolone Sod Succinate Inj 125 MG/2 ML Vial IV.PUSH ONE (23:42)
[2018-10-21] MEDS ORDERED: Levofloxacin 500 mg Premix Inj 500 MG/100 ML PIGGYBACK IV.SIG ONE (00:49)
[2018-10-21] MEDS ORDERED: Acetaminophen 325 MG Tablet PO PRN (05:35)
[2018-10-21] MEDS ORDERED: Bisacodyl 10 MG Supp RECTAL PRN (05:35)
[2018-10-21] MEDS: MethylPREDNISolone Sod Succinate Inj 40 MG/ML Vial IV.PUSH SCH ×3 (06:00→17:51)
[2018-10-21] MEDS: Senna/Docusate Sodium 8.6/50 MG Tablet PO SCH ×2 (09:18→20:25)
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
[2018-10-21] MEDS ORDERED: Dextrose 50% in Water 50 ML Vial IV.PUSH PRN (10:47)
[2018-10-21] MEDS: Budesonide-Formoterol 80/4.5 MCG 6.9 GM Inhaler INH SCH (20:23)
[2018-10-22] MEDS: MethylPREDNISolone Sod Succinate Inj 40 MG/ML Vial IV.PUSH SCH ×4 (01:45→12:20)
[2018-10-22 06:37] LABS: Baso % (Auto) 0.1 % (0.0-2.0); Eos % (Auto) 0.1 % (0.0-4.0); Hematocrit 44.2 % (35.0-46.0); Hemoglobin 14.6 gm/dL (11.6-15.3); Lymph % (Auto) 5.5 % (9.0-44.0); Mean Corpuscular HGB Conc 33.1 % (32.0-36.0); Mean Corpuscular Hemoglobin 28.1 pg (27.0-34.0); Mean Corpuscular Volume 85.1 fL (80.0-100.0); Mean Platelet Volume 7.9 fL (7.0-11.0); Mono # (Auto) 0.7 th/mm3 (0.0-0.9); Mono % (Auto) 3.9 % (0.0-8.0); Neut # (Auto) 16.6 th/mm3 (1.8-7.7); Neut % (Auto) 90.4 % (16.0-70.0); Platelet Count 312 th/mm3 (150-450); Red Cell Distribution Width 13.1 % (11.6-17.2); White Blood Count 18.3 th/mm3 (4.0-11.0)
[2018-10-22 07:00] LABS: Calcium 8.7 mg/dL (8.5-10.1); Carbon Dioxide 29.5 meq/L (21.0-32.0); Potassium 4.8 meq/L (3.5-5.1)
[2018-10-22] MEDS: Senna/Docusate Sodium 8.6/50 MG Tablet PO SCH (08:25)
[2018-10-22] MEDS: Budesonide-Formoterol 80/4.5 MCG 6.9 GM Inhaler INH SCH (08:25)
[2018-10-22] MEDS ORDERED: Enoxaparin Inj 30 MG/0.3 ML Syringe SQ SCH (09:00)
[2018-10-22] MEDS ORDERED: Metoprolol Tartrate 25 MG Tablet PO SCH (11:45)
[2018-10-22 13:01] LABS: Hemoglobin A1c 7.4 % (4.3-6.0)
[2018-10-22] MEDS ORDERED: Enoxaparin Inj 80 MG/0.8 ML Syringe SQ ONE (13:03)
--- NOTE | 2018-10-22 13:07 | P.PN ---
Subjective Interval history: Denies any deteriorations overnight. Patient says she was able to walk back and forth from the nursing station without much distress. Feels okay. Noted to be still tachycardic. Physical Exam Vital signs: Vital Signs 10/21/18 13:23 10/21/18 15:15 10/21/18 16:42 Temperature 97.3 F L Pulse Rate 103 H 113 H 126 H Respiratory Rate 18 20 20 Blood Pressure 141/83 H Pulse Oximetry 91 L 10/21/18 16:43 10/21/18 19:52 10/21/18 20:00 Temperature 97.1 F L Pulse Rate 128 H 116 H Respiratory Rate 20 20 Blood Pressure 157/88 H Pulse Oximetry 93 L 92 L 90 L 10/21/18 23:16 10/22/18 00:00 10/22/18 03:46 Temperature 97.4 F L Pulse Rate 120 H 105 H 113 H Respiratory Rate 20 21 18 Blood Pressure 131/75 Pulse Oximetry 92 L 10/22/18 03:47 10/22/18 07:22 10/22/18 08:00 Temperature 97.8 F Pulse Rate 113 H 113 H Respiratory Rate 19 20 Blood Pressure 133/75 Pulse Oximetry 93 L 93 L 93 L 10/22/18 12:00 Temperature 97.8 F Pulse Rate 125 H Respiratory Rate 20 Blood Pressure 126/69 Pulse Oximetry 92 L Intake & Output 10/21/18 10/22/18 10/22/18 18:59 06:59 18:59 Intake Total 420 / 420 Balance 420 / 420 Weight 105.9 kg Intake: Oral 420 / 420 Other: # Voids 2 Narrative: Mildly tachycardic rate, regular rhythm . Faint wheezing heard in the bases with good aeration otherwise Unlabored breathing Awake alert Results - Labs CBC & Chem 7: 10/22/18 06:00 10/22/18 06:00 Laboratory Results - last 24 hr 10/22/18 10/22/18 10/22/18 06:00 06:00 06:00 CBC w Diff Auto diff final WBC 18.3 H RBC 5.20 Hgb 14.6 Hct 44.2 MCV 85.1 MCH 28.1 MCHC 33.1 RDW 13.1 Plt Count 312 MPV 7.9 Neut % (Auto) 90.4 H Lymph % (Auto) 5.5 L [place] % (Auto) 3.9 Eos % (Auto) 0.1 Baso % (Auto) 0.1 Neut # (Auto) 16.6 H Lymph # (Auto) 1.0 [place] # (Auto) 0.7 Eos # (Auto) 0.0 Baso # (Auto) 0.0 WBC Differential . Differential Comment . Sodium 137 Potassium 4.8 D Chloride 101 Carbon Dioxide 29.5 Anion Gap 7 BUN 18 Creatinine 0.94 Estimated GFR 62 L Random Glucose 241 H Calcium 8.7 TSH 0.295 L Assessment and Plan - Plan 57-year-old white female being admitted for COPD exacerbation COPD exacerbation Continue steroids, bronchodilators Continue ICS Doing well on room air, which improved since yesterday Tachycardia Independent reviewed EKG which I see sinus tachycardia, will obtain CTA to rule out pulmonary embolism given the patient's risk coming from her weight -tsh slightly low, Free T4 pending Mild intermittent LE edema - resolved, BNP wnl DM - apparently diet controlled, will obtain A1c for now - accuchecks Addendum: Patient was doing well today. CTA was negative for any PE, tachycardia improved down to the low 100s, likely secondary to bronchodilator treatments and steroids. Patient asymptomatic. Patient is maximal benefit from hospitalization and is clinically stable for discharge.
--- NOTE | 2018-10-22 15:18 | CT ---
EXAM DATE: 10/22/2018 3:13 PM EST AGE/SEX: 57 years / Female INDICATIONS: Short of breath. CLINICAL DATA: This is the patient's initial encounter. Patient reports that signs and symptoms have been present for 1 week and indicates a pain score of 0/10. MEDICAL/SURGICAL HISTORY: Chronic obstructive pulmonary disease. Diabetes. Fusion, lumbar. RADIATION DOSE: 21.64 CTDI (mGy) COMPARISON: [facility], CT PULMONARY ANGIOGRAM, 08/18/2017. . TECHNIQUE: Volumetric scanning was performed using a multi-row detector CT scanner during bolus infu jean-pierre of 75 ml Omnipaque 350 (iohexol) nonionic water-soluble contrast as a single exam dose. The lorenzo a was post processed with a variety of visualization algorithms including full volume maximum intensi ty projection and sliding thin slab reformation. Using automated exposure control and adjustment of the mA and/or kV according to patient size, radiation dose was kept as low as reasonably achievable t o obtain optimal diagnostic quality images. DICOM format image data is available electronically for review and comparison. FINDINGS: Pulmonary Arteries: No filling defects are seen in the pulmonary arteries out to the subsegmental ve ssels. The left and right pulmonary arteries are normal in diameter. Lung: Minimal patchy groundglass infiltrate in the medial right upper lobe Effusion: None. Mediastinum: No evidence of mediastinal or hilar adenopathy. Other: The axilla is unremarkable. CONCLUSION: This study is negative for pulmonary embolism. Electronically signed by: Orestes Carrizales MD 10/22/2018 3:17 PM EST
--- NOTE | 2018-10-22 20:13 | ECG ---
Date Performed: 10/22/2018 Time Performed: 10:49:19 PTAGE: 57 years EKG: SINUS TACHYCARDIA POSSIBLE OLD ANTERIOR MYOCARDIAL INFARCTION Since the previous tracing, n o significant change noted ABNORMAL ECG PREVIOUS TRACING : 08/18/2017 14.55 DOCTOR: Dick Schofield Interpretating Date/Time 10/22/2018 20:12:25
[2018-10-22] MEDS ORDERED: Enoxaparin Inj 120 MG/0.8 ML Syringe SQ SCH (21:00)
== END 2018-10-22 18:36 | disposition home or self-care (01) ==
LOC: PHEDA 20:20 → PHED 20:20 → PH3 10-21 07:25
PROVIDERS: ADMIT Hospitalist; ATTEND Hospitalist
DX: Z79.84 Long term (current) use of oral hypoglycemic drugs; R94.31 Abnormal electrocardiogram [ECG] [EKG]; J44.1 Chronic obstructive pulmonary disease with (acute) exacerbation; G47.33 Obstructive sleep apnea (adult) (pediatric); F17.210 Nicotine dependence, cigarettes, uncomplicated; Z80.1 Family history of malignant neoplasm of trachea, bronchus and lung; E11.9 Type 2 diabetes mellitus without complications